=== PATIENT | male | born 1955 ===

== ENCOUNTER 2023-09-05 17:27 | Observation (INO) ==
[2023-09-05] MEDS: DUONEB 0.5 MG/3 MG (3 mL) NEB SCH (20:00)
[2023-09-05] MEDS ORDERED: DUONEB 0.5 MG/3 MG (3 mL) NEB ONE (20:05)
--- NOTE | 2023-09-05 20:14 | EKG ---
Test Reason : New Admission Blood Pressure : */* mmHG Vent. Rate : 90 BPM Atrial Rate : 90 BPM P-R Int : 128 ms QRS Dur : 80 ms QT Int : 372 ms P-R-T Axes : 64 103 60 degrees QTc Int : 455 ms Normal sinus rhythm Rightward axis Borderline ECG No previous ECGs available Confirmed by Brody Gerard MD ([id number]) on 09/06/2023 7:39:48 AM Referred By: Confirmed By: Brody Gerard MD
[2023-09-05] MEDS ORDERED: DILAUDID INJ IVP PRN (21:31)
[2023-09-05 22:04] VITALS: BMI 18.8
--- NOTE | 2023-09-05 22:51 | RAD ---
EXAM:CHEST, 1 VIEWHISTORY:New Admission;COMPARISON:May 24, 2023TECHNIQUE:Chest radiographic imaging, AP portable projection, 1 imageFINDINGS:No cardiomegaly.No focal airspace disease.Bilateral increased interstitial markings; similar to the previous exam.No pleural effusion.No pneumothorax.No acute osseous abnormality.IMPRESSION:No imaging findings of acute cardiopulmonary disease or significant changes.THIS IS AN ELECTRONICALLY VERIFIED FINAL REPORT09/05/2023 10:47 PM - Electronically signed by Everette Toure MD
[2023-09-05] MEDS: ZOSYN VIAL 3.375 GRAMS 3.375 G in NS 100 ML IV 100 ML IV SCH (23:57)
[2023-09-05] MEDS: D5 1/2 NS 1,000 ML 1,000 ML IV SCH (23:58)
[2023-09-05] MEDS: PROTONIX TAB 40 MG PO SCH (23:58)
[2023-09-05] MEDS: HIBICLENS WASH EXT ONE (23:58)
--- NOTE | 2023-09-06 08:24 | DR.PROGNOT ---
HOSPITAL PROGRESS NOTE Progress Note for Day of: Progress Note Date: 09/06/23 Chief Complaint Chief Complaint: moderate RLQ pain .. no nausea or vomiting . no fever this am . Past Medical Family Social History Past Med/Fam/Surg Hx: No changes since H&P Allergies: Allergies No Known Allergies Allergy (Verified 09/05/23 23:11) Physical Exam Oriented: Normal Eyes: Normal Nose: Normal Throat: Normal Respiratory: Normal Cardiovascular: Normal GI:Auscultation: Normal GI:Palpation: Normal GI: Tenderness: Other (RLQ tenderness with mild rebound , BS+) Speech Pattern: Clear and Appropriate Assessment and Plan 1: non complicated appendicitis . on IV ABT , IVF to avoid surgery if Pt improves with ABT 2: COPD on O2 nc
[2023-09-06] MEDS: LIPITOR TAB 10 MG PO SCH (10:20)
[2023-09-06] MEDS: MAG-OX TAB PO SCH (10:20)
[2023-09-06] MEDS: SINGULAIR TAB 10 MG PO SCH (10:20)
[2023-09-06 10:28] LABS: BASOPHILS # (AUTO) 0.1 X10^3/uL (0.0-0.1); BASOPHILS % (AUTO) 1.1 % (0.2-1.0); EOSINOPHILS # (AUTO) 0.2 x10^3/uL (0.0-0.2); EOSINOPHILS % (AUTO) 2.8 % (0.9-2.9); HEMATOCRIT 41.3 % (42.0-54.0); HEMOGLOBIN 13.3 g/dL (13.5-18.0); LYMPHOCYTES # (AUTO) 1.4 X10^3/uL (1.3-2.9); LYMPHOCYTES % (AUTO) 16.7 % (21.0-51.0); MEAN CORPUSCULAR HEMOGLOBIN 26.6 pg (27.0-34.0); MEAN CORPUSCULAR HGB CONC 32.3 g/dL (33.0-35.0); MEAN CORPUSCULAR VOLUME 82.4 fL (80.0-100.0); MEAN PLATELET VOLUME 7.6 fL (7.4-11.0); MONOCYTES # (AUTO) 0.9 x10^3/uL (0.3-0.8); MONOCYTES % (AUTO) 10.8 % (0.0-13.0); NEUTROPHILS # (AUTO) 5.6 x10^3/uL (2.2-4.8); NEUTROPHILS % (AUTO) 68.6 % (42.0-75.0); PLATELET COUNT 257 X10^3/uL (150.0-450.0); RED BLOOD COUNT 5.01 X10^6/uL (4.7-6.0); RED CELL DISTRIBUTION WIDTH 14.5 % (11.6-16.5); WHITE BLOOD COUNT 8.1 X10^3/uL (3.6-10.0)
[2023-09-06 10:42] LABS: ALANINE AMINOTRANSFERASE 21 Units/L (12-78); ALBUMIN 3.3 g/dL (3.4-5.0); ALKALINE PHOSPHATASE 80 Units/L (46-116); ASPARTATE AMINO TRANSFERASE 18 Units/L (15-37); BLOOD UREA NITROGEN 10 mg/dL (7-18); CALCIUM 8.5 mg/dL (8.5-10.1); CARBON DIOXIDE 29.4 mmol/L (21-32); CHLORIDE 104 mmol/L (98-107); COR CA(FOR HYPOALB) 9.1 mg/dL (8.5-10.1); COR NA(FOR HYPERGLY) 143 mmol/L (136-145); CREATININE 0.78 mg/dL (0.70-1.30); GLUCOSE 113 mg/dL (65-99); POTASSIUM 3.3 mmol/L (3.5-5.1); SODIUM 143 mmol/L (136-145); TOTAL PROTEIN 6.7 g/dL (6.4-8.2); eGFR NON BLACK RACES > 60 (>60)
[2023-09-06] MEDS: K-DUR TAB 20 MEQ PO SCH (14:29)
[2023-09-06] MEDS ORDERED: CONSULT PHARMACY - POTASSIUM & MAGNESIUM XX SCH (15:00)
[2023-09-06] MEDS: ALPRAZOLAM ODT PO PRN (22:20)
[2023-09-07 05:18] LABS: BASOPHILS % (AUTO) 0.5 % (0.2-1.0); EOSINOPHILS # (AUTO) 0.4 x10^3/uL (0.0-0.2); EOSINOPHILS % (AUTO) 5.8 % (0.9-2.9); HEMATOCRIT 38.3 % (42.0-54.0); HEMOGLOBIN 12.4 g/dL (13.5-18.0); LYMPHOCYTES # (AUTO) 1.3 X10^3/uL (1.3-2.9); LYMPHOCYTES % (AUTO) 17.4 % (21.0-51.0); MEAN CORPUSCULAR HEMOGLOBIN 26.6 pg (27.0-34.0); MEAN CORPUSCULAR HGB CONC 32.3 g/dL (33.0-35.0); MEAN CORPUSCULAR VOLUME 82.4 fL (80.0-100.0); MEAN PLATELET VOLUME 7.8 fL (7.4-11.0); MONOCYTES # (AUTO) 0.9 x10^3/uL (0.3-0.8); NEUTROPHILS # (AUTO) 4.8 x10^3/uL (2.2-4.8); NEUTROPHILS % (AUTO) 64.3 % (42.0-75.0); PLATELET COUNT 260 X10^3/uL (150.0-450.0); RED BLOOD COUNT 4.65 X10^6/uL (4.7-6.0); RED CELL DISTRIBUTION WIDTH 14.4 % (11.6-16.5); WHITE BLOOD COUNT 7.5 X10^3/uL (3.6-10.0)
[2023-09-07 05:28] LABS: ALANINE AMINOTRANSFERASE 17 Units/L (12-78); ALBUMIN 2.9 g/dL (3.4-5.0); ALKALINE PHOSPHATASE 68 Units/L (46-116); ASPARTATE AMINO TRANSFERASE 13 Units/L (15-37); BLOOD UREA NITROGEN 7 mg/dL (7-18); CALCIUM 8.1 mg/dL (8.5-10.1); CARBON DIOXIDE 29.1 mmol/L (21-32); CHLORIDE 107 mmol/L (98-107); CREATININE 0.74 mg/dL (0.70-1.30); GLUCOSE 104 mg/dL (65-99); POTASSIUM 3.7 mmol/L (3.5-5.1); SODIUM 144 mmol/L (136-145); TOTAL PROTEIN 6.1 g/dL (6.4-8.2); eGFR NON BLACK RACES > 60 (>60)
[2023-09-07] MEDS ORDERED: CONSULT PHARMACY - POTASSIUM & MAGNESIUM XX SCH (06:00)
[2023-09-07 10:02] VITALS: O2SAT 94
[2023-09-07] MEDS: K-DUR TAB 20 MEQ PO SCH (10:17)
[2023-09-07 10:26] VITALS: BP 109/63; PULSE 98; RESP 20; TEMP 97.9
== END 2023-09-07 10:55 | disposition home or self-care (01) ==
LOC: MED/SURG
PROVIDERS: ADMIT Surgery; ATTEND Surgery
DX: R10.84 Generalized abdominal pain; E87.6 Hypokalemia; J44.9 Chronic obstructive pulmonary disease, unspecified; Z99.81 Dependence on supplemental oxygen; R10.31 Right lower quadrant pain; K35.890 Other acute appendicitis without perforation or gangrene